=== PATIENT | female | born 1975 ===

== ENCOUNTER 2016-12-01 19:04 | Emergency (ER) | payer SELFPAY ==
[2016-12-01 20:57] LABS: PLATELET COUNT 330 x10^3mcL (130-400)
[2016-12-01 21:06] LABS: CALCIUM 10.4 mg/dL (8.5-10.1); CARBON DIOXIDE 27.6 mmol/L (21-32); CHLORIDE SERUM 104 mmol/L (98-107); CREATININE SERUM 0.8 mg/dL (0.6-1.0); GFR1 > 60 mL/min; GLUCOSE SERUM 84 mg/dL (74-106); POTASSIUM SERUM 3.7 mmol/L (3.5-5.1); SODIUM SERUM 139 mmol/L (136-145)
[2016-12-01 21:09] LABS: RED CELL DISTRIBUTION WIDTH 18.6 % (11.5-14.5)
[2016-12-01 21:10] LABS: ALKALINE PHOSPHATASE 102 U/L (46-116); ALT/SGPT 34 U/L (14-59); AMYLASE 70 U/L (25-115); AST/SGOT 25 U/L (15-37); BILIRUBIN TOTAL 0.55 mg/dL (0.20-1.00); LIPASE 221 IU/L (73-393); TOTAL PROTEIN, SERUM 7.7 g/dL (6.4-8.2)
[2016-12-01 21:20] LABS: BAND NEUTROPHIL 1 % (0-10); BASOPHIL 0 % (0-2); MONOCYTE 1 % (0-7); SEGMENTED NEUTROPHILS 79 % (37-75)
[2016-12-01 21:24] LABS: rbc morphology (normal/abnorm) ABNORMAL (NORMAL)
[2016-12-01 21:25] LABS: target cell (codocyte) 2+; tear drop cell (dacryocyte) 1+
[2016-12-02 00:27] VITALS: BP 133/73
== END 2016-12-02 00:27 | disposition home or self-care (01) ==
LOC: ED 19:04
PROVIDERS: Emergency Medicine
DX: R10.32 Left lower quadrant pain (principal); D72.829 Elevated white blood cell count, unspecified
CPT/HCPCS: 83880; J2270; J2405; J7030; Q0092

== ENCOUNTER 2016-12-02 17:47 | Emergency (ER) | payer SELFPAY ==
[~2016-12-02] VITALS: Ht 172.7 cm; Wt 60.8 kg
[2016-12-02 19:07] LABS: microscopic required? NO
[2016-12-02 19:14] LABS: urine erythrocyte NEGATIVE (NEGATIVE)
[2016-12-02 19:15] LABS: PLATELET COUNT 280 x10^3mcL (130-400)
[2016-12-02 19:17] LABS: BASOPHIL % 0 % (0-2); RED CELL DISTRIBUTION WIDTH 18.8 % (11.5-14.5)
[2016-12-02 19:33] LABS: CALCIUM 9.8 mg/dL (8.5-10.1); CARBON DIOXIDE 25.8 mmol/L (21-32); CHLORIDE SERUM 106 mmol/L (98-107); CREATININE SERUM 0.9 mg/dL (0.6-1.0); GFR1 > 60 mL/min; GLUCOSE SERUM 90 mg/dL (74-106); POTASSIUM SERUM 3.8 mmol/L (3.5-5.1); SODIUM SERUM 141 mmol/L (136-145)
[2016-12-02 19:37] LABS: ALBUMIN 3.5 g/dL (3.4-5.0); ALKALINE PHOSPHATASE 86 U/L (46-116); ALT/SGPT 28 U/L (14-59); AMYLASE 57 U/L (25-115); AST/SGOT 17 U/L (15-37); BILIRUBIN TOTAL 0.5 mg/dL (0.20-1.00); LIPASE 181 IU/L (73-393); TOTAL PROTEIN, SERUM 6.9 g/dL (6.4-8.2)
[2016-12-03 03:45] VITALS: BP 123/71
== END 2016-12-03 03:45 | disposition home or self-care (01) ==
LOC: ED 17:47
PROVIDERS: Emergency Medicine
DX: R10.2 Pelvic and perineal pain (principal); R10.32 Left lower quadrant pain; D50.9 Iron deficiency anemia, unspecified
CPT/HCPCS: 83880; J1885; J2270; J2405; Q9967